=== PATIENT | male | born 1945 | race Caucasian/White ===

== ENCOUNTER 2017-05-14 15:40 | Inpatient (IN) | payer OTHER ==
[~2017-05-14] VITALS: Ht 165.1 cm; Wt 73.5 kg
--- NOTE | 2017-05-14 15:40 | NUR ---
Patient was BIBA and taken to bed 08 via gurney per EMS.
[2017-05-14 15:48] VITALS: BP 131/62
--- NOTE | 2017-05-14 15:52 | NUR ---
PATIENT BIBAdebayo FROM [facility] C/O FEELING WEAK X TODAY WHILE WORKING.PT DENIES ANY PAIN AT THIS TIME;HX OF DM;RX OF METFORMIN .DENIES N/V/D; SKIN IS PINK/WARM/DRY; AAOX4 WITH EVEN AND STEADY GAIT; LUNGS CLEAR BL; HR EVEN AND REGULAR; PT DENIES ANY FEVER, CP, SOB, OR COUGH AT THIS TIME; PATIENT STATES PAIN OF 0/10 AT THIS TIME; VSS; PATIENT POSITIONED FOR COMFORT; HOB ELEVATED; BEDRAILS UP X2; BED DOWN.ALL MONITORS IN PLACED; ER MD MADE AWARE OF PT STATUS.
[2017-05-14] MEDS ORDERED: NACL 0.9% 1,000 ML IV ONE ×2 (15:55→17:20)
--- NOTE | 2017-05-14 15:56 | NUR ---
Dr. Cote evaluating patient at bedside.
[2017-05-14 16:16] LABS: EOSINOPHILS # (AUTO) 0.1 K/uL (0-0.4); EOSINOPHILS % (AUTO) 1.4 % (0.0-4.0); MEAN CORPUSCULAR HEMOGLOBIN 30 pg (27-31); MEAN CORPUSCULAR HGB CONC 34 g/dL (33-37)
[2017-05-14 16:22] LABS: BASOPHILS # (AUTO) 0.2 K/uL (0.00-0.22); BASOPHILS % (AUTO) 2.1 % (0.0-2.0); HEMATOCRIT 39.1 % (36-52); HEMOGLOBIN 13.3 g/dL (12.0-18.0); LYMPHOCYTES # (AUTO) 0.8 K/uL (2.0-11.5); LYMPHOCYTES % (AUTO) 10.5 % (20.5-51.1); MEAN CORPUSCULAR VOLUME 89 fL (80-94); MONOCYTES # (AUTO) 0.4 K/uL (0.8-1.0); MONOCYTES % (AUTO) 5.5 % (1.7-9.3); NEUTROPHILS # (AUTO) 6.5 K/uL (1.8-7.7); NEUTROPHILS % (AUTO) 80.5 % (42.2-75.2); PLATELET COUNT (AUTO) 175 K/uL (140-450); RED BLOOD CELL COUNT(AUTO) 4.39 MIL/uL (4.20-6.10); RED CELL DISTRIBUTION WIDTH 12.5 % (11.6-13.7)
[2017-05-14 16:29] LABS: ANION GAP 14.2 (8-16); CARBON DIOXIDE 26.7 mmol/L (21-32); CHLORIDE 106 mmol/L (98-107); CREATININE 2.4 mg/dL (0.7-1.3); GLUCOSE 147 mg/dL (74-106); POTASSIUM 4.9 mmol/L (3.5-5.1); SODIUM SERUM 142 mmol/L (136-145); UREA NITROGEN, BLOOD 41 mg/dL (7-18)
[2017-05-14 16:45] LABS: ALBUMIN 3.9 g/dL (3.4-5.0); ASPARTATE AMINOTRANSFERASE 76 U/L (15-37); TOTAL BILIRUBIN 0.6 mg/dL (0.0-1.0)
[2017-05-14] MEDS ORDERED: NACL 0.45% 1,000 ML IV ONE (17:20)
[2017-05-14] MEDS ORDERED: ACETAMINOPHEN 325 MG TAB PO PRN (17:30)
[2017-05-14] MEDS ORDERED: ONDANSETRON 4 MG/2 ML VIAL IVP PRN (17:30)
[2017-05-14] MEDS ORDERED: HYDROcodone/APAP 7.5/325 MG 1 TAB PO PRN (17:30)
[2017-05-14] MEDS ORDERED: METF850T PO (17:42)
--- NOTE | 2017-05-14 17:48 | NUR ---
Patient will be admitted to care of DR MOHAN. Admited to TELE. Will go to room 105 B. Belongings list completed. Report to DAVE DUPREE.
[2017-05-14] MEDS ORDERED: MILD SOAP AND WATER TP PRN (18:30)
--- NOTE | 2017-05-14 18:30 | NUR ---
PT ARRIVED FROM ER IN [facility], AWAKE ALERT OX4, RESP EVEN UNLABORED ON ROOM AIR, PT ABLE TO AMBULATE FROM HALLWAY TO 105B WITH STEADY GAIT, PT PLACED ON RN ORTHOPEDIC, VITALS TAKEN, HR 86, BP 138/81, O2 SAT 100%, TEMP 98.2 TA, PT ORIENTED TO ROOM AND FLOOR, PLAN OF CARE DISCUSSED, PT VERBALIZED FULL UNDERSTANDING, DR REDMAN TO BEDSIDE FOR ADMISSION EVALUATION, PT WITH ERYTHEMA TO BILAT INNER THIGH, C/O ITCHING, DENIES DIZZINESS, DENIES LIGHTHEADEDNESS, DENIES SOB, DENIES CHEST PAIN OR OTHER DISCOMFORT, PT HAD 1 EPISODE OF STOOL INCONTINENCE PRIOR TO ARRIVAL, OK'D BY DR REDMAN TO TAKE A SHOWER, PT ESCORTED TO SHOWER AT THIS TIME.
[2017-05-14] MEDS ORDERED: DEXTROSE 50% 50 ML SYR IVP PRN (18:40)
[2017-05-14 18:49] LABS: CHOL/HDL RATIO 4.3 (1-4.5); FREE T4 (FREE THYROXINE) 1.13 ng/dL (0.76-1.46); MAGNESIUM 1.8 mg/dL (1.8-2.4); PHOSPHORUS 6.1 mg/dL (2.5-4.9); THYROID STIMULATING HORMONE 8.19 uIU/mL (0.34-3.74)
[2017-05-14] MEDS ORDERED: TAMSULOSIN 0.4 MG CAP PO SCH (18:51)
--- NOTE | 2017-05-14 19:15 | NUR ---
REPORT GIVEN TO SHORTHAND TEACHER NURSE BECCA, PT NOW WALKING BACK TO ROOM FROM SHOWER WITH STEADY GAIT.
--- NOTE | 2017-05-14 19:16 | NUR ---
RECEIVED REPORT FROM DAY SHIFT NURSE, DAVE DUPREE, PT WALKING FROM SHOWER TO BED, PT STABLE, NO DISTRESS NOTED, AAOX4, IV TO THE R FA 18 G RUNNING NS @150 ML/HR, INFUSING WELL, SKIN INTACT, WITH REDNESS IN THE GROIN AND BILATERAL TIGHT AREA, ALL SAFETY PERCAUTION MET, INITIAL ASSESSMENT DONE, CALL LIGHT WITHIN REACH, WILL CONTINUE TO MONITOR. Addendum: 05/14/17 at 9624 by Johana Jimenez RN PT REFUSED CATTLE RANCHER, PT FAMILY BY BEDSIDE TRANSLATING FOR HIM.
[2017-05-14 19:30] VITALS: BP 143/72
[2017-05-14] MEDS: NACL 0.9% 1,000 ML IV SCH ×2 (19:30→20:26)
--- NOTE | 2017-05-14 19:30 | NUR ---
PT IS MALTESE SPEAKING. FAMILY MEMBERS AT BEDSIDE. EXPLAINED TO PT FAMILY ABOUT USE OF BLUE PHONE TO TRANSLATE FOR PT TO GET ADMISSION INFORMATION. REFUSED TO USE BLUE PHONE . SLIMELALI FALCON- SON IN LAW AVAILABLE TO TRANSLATE FOR PT.
[2017-05-14] MEDS: SIMVASTATIN 10 MG TAB PO SCH (20:24)
--- NOTE | 2017-05-14 20:24 | NUR ---
DUE MEDICATION GIVEN, PT TOLERATED WELL,PT STABLE, NO DISTRESS NOTED, FAMILY BY BEDSIDE, CALL LIGHT WITHIN REACH, WILL CONTINUE TO MONITOR
[2017-05-14] MEDS: DOCUSATE SODIUM 100 MG GELCAP PO SCH (20:26)
[2017-05-14] MEDS: BLOOD GLUCOSE MONITORING 1 DEV DEV FS SCH (21:22)
[2017-05-14] MEDS: INSULIN LISPRO SLIDING SCALE 100 UNITS/ML VIAL SUBQ PRN (21:54)
[2017-05-14] MEDS ORDERED: CALCIUM ACETATE 667 MG TAB PO SCH (22:30)
--- NOTE | 2017-05-14 22:45 | NUR ---
PT SAID OK TO GET BOTH PNEUMONIA AND FLU VACCINE HERE. DR. Mio REDMAN ,RESIDENT MADE AWARE. HE SAID HE WILL PUT AN ORDER.
[2017-05-15] VITALS (8 sets, daily range): BP systolic 125–150; BP diastolic 59–82
[2017-05-15] MEDS: NACL 0.9% 1,000 ML IV SCH ×7 (00:10→22:00)
--- NOTE | 2017-05-15 00:16 | NUR ---
VITAL SIGN TAKEN, PT STABLE, SLEEPING, EASY TO AROUSE, CALL LIGHT WITHIN REACH, WILL CONTINUE TO MONITOR.
[2017-05-15] MEDS ORDERED: NYSTATIN POW 100 MU/GM 15 GM BTL TP SCH (01:00)
[2017-05-15] MEDS: TRIAMCINOLONE 0.1% CRM 15 GM TUBE TP SCH ×2 (01:00→13:00)
[2017-05-15] MEDS: MILD SOAP AND WATER TP SCH ×2 (01:30→13:00)
--- NOTE | 2017-05-15 02:30 | NUR ---
PT SLEEPING, EASY TO AROUSE, STABLE, NO DISTRESS NOTED, CALL LIGHT WITHIN REACH. WILL CONTINUE TO MONITOR.
--- NOTE | 2017-05-15 04:57 | NUR ---
PT SLEEPING, EASY TO AROUSE, PT STABLE, NO DISTRESS NOTED, CALL LIGHT WITHIN REACH. WILL CONTINUE TO MONITOR.
--- NOTE | 2017-05-15 05:02 | NUR ---
PT AMBULATORY, SCD NOT INDICATED.
[2017-05-15 05:47] LABS: BASOPHILS # (AUTO) 0.1 K/uL (0.00-0.22); BASOPHILS % (AUTO) 1.6 % (0.0-2.0); EOSINOPHILS # (AUTO) 0.1 K/uL (0-0.4); HEMATOCRIT 34.7 % (36-52); HEMOGLOBIN 11.7 g/dL (12.0-18.0); LYMPHOCYTES # (AUTO) 0.7 K/uL (2.0-11.5); LYMPHOCYTES % (AUTO) 16.9 % (20.5-51.1); MEAN CORPUSCULAR HEMOGLOBIN 30 pg (27-31); MEAN CORPUSCULAR HGB CONC 34 g/dL (33-37); MEAN CORPUSCULAR VOLUME 89 fL (80-94); MONOCYTES # (AUTO) 0.4 K/uL (0.8-1.0); NEUTROPHILS # (AUTO) 2.9 K/uL (1.8-7.7); NEUTROPHILS % (AUTO) 70.5 % (42.2-75.2); PLATELET COUNT (AUTO) 122 K/uL (140-450); RED BLOOD CELL COUNT(AUTO) 3.88 MIL/uL (4.20-6.10); RED CELL DISTRIBUTION WIDTH 12.3 % (11.6-13.7); WHITE BLOOD COUNT (AUTO) 4.2 K/uL (4.8-10.8)
[2017-05-15] MEDS: BLOOD GLUCOSE MONITORING 1 DEV DEV FS SCH ×4 (05:58→20:18)
[2017-05-15 06:01] LABS: ANION GAP 12.2 (8-16); CARBON DIOXIDE 23.4 mmol/L (21-32); CHLORIDE 109 mmol/L (98-107); CREATININE 1.2 mg/dL (0.7-1.3); GLUCOSE 140 mg/dL (74-106); POTASSIUM 4.6 mmol/L (3.5-5.1); SODIUM SERUM 140 mmol/L (136-145); UREA NITROGEN, BLOOD 28 mg/dL (7-18)
--- NOTE | 2017-05-15 06:31 | NUR ---
BLOOD SUGAR 129, NO INSULIN COVERAGE.
--- NOTE | 2017-05-15 07:05 | NUR ---
GAVE REPORT TO DAY SHIFT NURSE, ALEENA RN, PT STABLE, NO DISTRESS NOTED.
--- NOTE | 2017-05-15 07:07 | NUR ---
RECEIVED REPORT FROM HAND STEMMER RN. PATIENT IS AAOX4, DENIES ANY PAIN AT THIS TIME. RESPIRATORY EFFORT EVEN AND UNLABORED, NO SIGNS AND SYMPTOMS OF ACUTE DISTRESS NOTED AT THIS TIME. HAS NS INFUSING AT 150 ML/HR TO RIGHT FOREARM 18G. SITE IS CLEAN, DRY, INTACT AND PATENT. BED IS IN LOWEST POSITION, SIDERAILS UP X2, CALL LIGHT PLACED WITHIN REACH. WILL CONTINUE TO MONITOR.
--- NOTE | 2017-05-15 08:44 | NUR ---
WENT IN WITH DR BOATENG FOR A STOOL OCCULT SAMPLE. PATIENT TOLERATED WELL.
[2017-05-15] MEDS: DOCUSATE SODIUM 100 MG GELCAP PO SCH ×2 (08:58→20:18)
[2017-05-15] MEDS: ECOTRIN 81 MG TABEC PO SCH (08:58)
[2017-05-15] MEDS: TAMSULOSIN 0.4 MG CAP PO SCH (08:59)
[2017-05-15] MEDS: LISINOPRIL 10 MG TAB PO SCH (08:59)
[2017-05-15] MEDS: metFORMIN 850 MG TAB PO SCH ×2 (08:59→17:02)
--- NOTE | 2017-05-15 09:05 | NUR ---
ASSESSED PATIENTS SKIN WITH RUG RECEIVING CLERK SARAH. HAS REDNESS ON INNER THIGHS BILATERALLY, DRS ARE AWARE AND HAVE NYASTATIN POWDER ORDERED. SHE RECOMMENDS PUTTING HYDRAGUARD ON HIS LOWER LEGS DUE TO DRY SKIN.
--- NOTE | 2017-05-15 09:23 | NUR ---
PATIENT HAS BEEN SCREENED AND CATEGORIZED HIGH NUTRITION RISK. PATIENT WILL BE SEEN WITHIN 1-2 DAYS OF ADMISSION. 05/15/17-05/16/[address]
--- NOTE | 2017-05-15 09:30 | NUR ---
WOUND EVALUATION NOTE: REASON FOR WOUND EVALUATION: SKIN RASHES COMPLETE SKIN ASSESSMENT DONE ON THIS 71 Y/O MALE PATIENT FROM HOME TO [facility], WITH INITIAL DIAGNOSIS OF GENERAL WEAKNESS. PAST MEDICAL HISTORY INCLUDE DM, HTN, AND HYPERLIPIDEMIA. ALL ABOVE INFORMATION WAS OBTAINED FROM THE ADMISSION H&P. LABS ARE WBC 8.0, H/H 13.3/39.1, POC GLUCOSE 129, PT/INR 11.1/1.1 AND PTT 23.2. CURRENT MEDS INCLUDE ASPIRIN, LISINOPRIL, METFORMIN AND INSULIN. PATIENT IS AWAKE, ORIENTED TO PERSON, PLACE AND TIME. SKIN WARM TO TOUCH WNL, TOENAILS ARE SLIGHTLY THICKENED, NO EDEMA, BLE WITH HAIR GROWTH AND NORMAL PEDAL PULSES. PT. SPEAK PUERTO RICAN, PRIMARY RN ASSIST IN TRANSLATING. PLAN OF CARE DISCUSS WITH PT. AND PRIMARY RN. PT VERBALIZES UNDERSTANDING. INTEGUMENTARY: SKIN DRY AND INTACT -GROINS TO MEDIAL THIGHS FUNGAL RASHES, SKIN INTACT -BLE DRY SCALING SKIN RECOMMENDATIONS: -CLEANSE GROINS AND MEDIAL THIGHS FUNGAL RASHES WITH SOAP AND WATER. PAT DRY,APPLY NYSTATIN POWDER QD AND ALEISHA -APPLY HYDRAGUARD TO BLE DRYNESS QD AND ALEISHA -TURN AND REPOSITION PATIENT Q2H -OFFLOAD BILATERAL HEELS BY PLACING PILLOWS UNDER CALVES AT ALL TIMES, UNLESS OTHERWISE CONTRAINDICATED-KEEP -KEEP SKIN CLEAN AND DRY AT ALL TIMES. -CONTINUE TO FOLLOW RD RECOMMENDATION RECOMMENDATIONS DISCUSSED WITH PRIMARY RN
[2017-05-15] MEDS ORDERED: TAMS0.4C96 PO (09:45)
[2017-05-15] MEDS ORDERED: LISI10TA11 PO (09:45)
[2017-05-15] MEDS ORDERED: SIMV10TA1 PO (09:45)
[2017-05-15] MEDS ORDERED: ASPI81CT89 PO (09:45)
[2017-05-15 12:09] LABS: APPEARANCE,URINE CLEAR (CLEAR); BILIRUBIN,URINE NEGATIVE (NEGATIVE); BLOOD, URINE NEGATIVE (NEGATIVE); COLOR,URINE YELLOW (YELLOW); LEUKOCYTE ESTERASE ,URINE NEGATIVE (NEGATIVE); NITRITE, URINE NEGATIVE (NEGATIVE); PH,URINE 5.5 (5.0-9.0); UGLUCOSE NEGATIVE (NEGATIVE)
[2017-05-15 12:16] LABS: BARBITURATE, URINE NEG. ng/ml (NEG <=200); BENZODIAZEPINE, URINE NEG. ng/mL (NEG <=200); CANNABINOID, URINE NEG. ng/mL (NEG <=50); COCAINE, URINE NEG. ng/mL (NEG <=300); OPIATE, URINE NEG. ng/mL (NEG <=2000); PHENCYCLIDINE SCREEN,URINE NEG. ng/mL (NEG <=25)
[2017-05-15 12:38] LABS: RBC,URINE 0-5 (RARE) /HPF (0-5); WBC,URINE 0-5 (RARE) /HPF (0-5)
--- NOTE | 2017-05-15 13:43 | NUR ---
05/15/17 RD INITIAL ASSESSMENT COMPLETED PLEASE REFER TO NUTRITION ASSESSMENT UNDER CARE ACTIVITY FOR ESTIMATED NUTRITIONAL NEEDS. 1. CONTINUE 60 GMS CONSISTENT CARBOHYDRATE DIET 2. RD TO FOLLOW UP WITHIN 3-5 DAYS; MODERATE RISK JOHANNE VASQUEZ RD
--- NOTE | 2017-05-15 13:55 | NUR ---
FAXED INITIAL REVIEW TO [facility] [phone] PHONE [facility] [phone] OP 4 PHONE COORDINATOR CHINTAN [phone] TRACKING [phone] FAXED INITIAL REVIEW TO [facility] [phone] PHONE ROSSY [phone] [facility] [[email or web address]] [phone]
--- NOTE | 2017-05-15 14:00 | NUR ---
APPLIED CREAM TO RASH AREAS ON BILATERAL THIGHS AND GROIN. ALSO APPLIED HYDROGUARD TO BILATERAL LOWER LEGS AND FEET FOR DRYNESS. PATIENT TOLERATED WELL.
[2017-05-15] MEDS: HYDRAGUARD CREAM TP SCH (15:09)
--- NOTE | 2017-05-15 17:00 | NUR ---
PATIENT IN BED RESTING. WILL CONTINUE TO MONITOR.
--- NOTE | 2017-05-15 19:08 | NUR ---
ENDORSED PATIENT TO SOUND CONTROLLER RN FOR CONTINUITY OF CARE. PATIENT IS IN STABLE CONDITION.
--- NOTE | 2017-05-15 19:15 | NUR ---
RECEIVED REPORT FROM AM NURSE. PT FAMILY AT BEDSIDE. PT RESTING IN BED, AOX4, AMBULATORY, ABLE TO VERBALIZE NEEDS. PT DENIES CHEST PAIN, SOB OR S/S OF ACUTE DISTRESS. BORING MACHINE OPERATOR HELPER IN PLACE. ERRYTHEMA NOTED ON GROIN AREA AND BILATERAL MEDIAL THIGH. IV ACCESS ASYMPTOMATIC, PATENT AND INTACT. IVF INFUSING WELL. DISCUSSED AND REVIEWED PLAN OF CARE WITH PT. PT VERBALIZED UNDERSTANDING. ALL NEEDS MET. IVF INFUSING WELL. SAFETY MEASURES ENSURED. CALL LIGHT WITHIN REACH. WILL CONTINUE TO MONITOR.
[2017-05-15] MEDS: SIMVASTATIN 10 MG TAB PO SCH (20:18)
[2017-05-15] MEDS: INSULIN LISPRO SLIDING SCALE 100 UNITS/ML VIAL SUBQ PRN (20:23)
[2017-05-15] MEDS: KETOCONAZOLE 2% 15 GM TUBE TP SCH (20:24)
--- NOTE | 2017-05-15 20:24 | NUR ---
ADMINISTERED DUE MEDS WITH EDUCATION. ADMINISTERED INSULIN COVERAGE WITH EVENING SNACK AND EDUCATION. DUE CREAM APPLIED TO BILATERAL THIGH AND GROIN ORDERED. PT VERBALIZED UNDERSTANDING, TOLERATED MEDS WELL. ALL NEEDS MET. IVF INFUSING WELL. SAFETY MEASURES ENSURED. CALL LIGHT WITHIN REACH. WILL CONTINUE TO MONITOR.
[2017-05-16] VITALS: BP 139/68
[2017-05-16] MEDS: TRIAMCINOLONE 0.1% CRM 15 GM TUBE TP SCH ×2 (00:15→13:28)
[2017-05-16] MEDS: MILD SOAP AND WATER TP SCH ×2 (00:15→13:20)
--- NOTE | 2017-05-16 00:15 | NUR ---
PT RESTING IN BED COMFORTABLY, NO S/S OF ACUTE DISTRESS. BILATERAL THIGH AND GROIN CLEANSED WITH SOAP AND WATER, PAT DRY, ADMINISTERED DUE CREAM ORDERED. PT TOLERATED WELL. ALL NEEDS MET. IVF INFUSING WELL. SAFETY MEASURES ENSURED. CALL LIGHT WITHIN REACH. WILL CONTINUE TO MONITOR.
--- NOTE | 2017-05-16 03:24 | NUR ---
PT SLEEPING COMFORTABLY, AROUSABLE BY NAME, NO S/S OF ACUTE DISTRESS. ALL NEEDS MET. IVF INFUSING WELL. SAFETY MEASURES ENSURED. CALL LIGHT WITHIN REACH. WILL CONTINUE TO MONITOR.
[2017-05-16 04:00] VITALS: BP 138/69
[2017-05-16] MEDS: BLOOD GLUCOSE MONITORING 1 DEV DEV FS SCH ×3 (06:36→16:28)
[2017-05-16] MEDS: INSULIN LISPRO SLIDING SCALE 100 UNITS/ML VIAL SUBQ PRN (06:37)
--- NOTE | 2017-05-16 06:37 | NUR ---
INSULIN COVERAGE ADMINISTERED WITH SNACK AND EDUCATION. PT VERBALIZED UNDERSTANDING, TOLERATED MED WELL. ALL NEEDS MET. IVF INFUSING WELL. SAFETY MEASURES ENSURED. CALL LIGHT WITHIN REACH. WILL CONTINUE TO MONITOR.
--- NOTE | 2017-05-16 07:20 | NUR ---
ENDORSED PLAN OF CARE TO AM NURSE. CONDITION STABLE.
--- NOTE | 2017-05-16 07:22 | NUR ---
RECEIVED PT IN BED. AWAKE. ALERT ORIENTED X4. NO SOB NOTED. DENIES ANY PAIN OR DISCOMFORT AT THIS TIME. PT AMBULATORY. SAFETY PRECAUTION IN PLACE. CALL LIGHT WITHIN REACH.
[2017-05-16 08:00] VITALS: BP 140/69
[2017-05-16] MEDS: TAMSULOSIN 0.4 MG CAP PO SCH (08:28)
[2017-05-16] MEDS: metFORMIN 850 MG TAB PO SCH ×2 (08:28→16:41)
[2017-05-16] MEDS: DOCUSATE SODIUM 100 MG GELCAP PO SCH (08:29)
[2017-05-16] MEDS: LISINOPRIL 10 MG TAB PO SCH (08:29)
[2017-05-16] MEDS: ECOTRIN 81 MG TABEC PO SCH (08:29)
[2017-05-16] MEDS: KETOCONAZOLE 2% 15 GM TUBE TP SCH (08:30)
--- NOTE | 2017-05-16 11:05 | NUR ---
JAY, GRANDDAUGHTER CAME TO SEE PT. PT WALKING ALONG THE HALLWAY, INDEPENDENTLY WITH GRANDDAUGHTER. NO SOB NOTED. DENIES ANY PAIN OR DISCOMFORT AT THIS TIME.
[2017-05-16 12:00] VITALS: BP 158/70
[2017-05-16] MEDS: NACL 0.9% 1,000 ML IV SCH (12:05)
[2017-05-16 13:00] VITALS: BP 158/77
--- NOTE | 2017-05-16 13:03 | NUR ---
DR. BOO MADE AWARE OF BLOOD PRESSURE 158/[address] BOO TO LET DR. BOATENG KNOW.
[2017-05-16] MEDS: HYDRAGUARD CREAM TP SCH (13:28)
--- NOTE | 2017-05-16 13:55 | NUR ---
CM NOTE CONCURRENT REVIEW FAXED TO [facility] (FAX# [phone], C: [phone] OP ) AND [facility] (FAX# [phone], ATTN: ROSSY [phone]) ERICKA FROM [employer] CLAIMS MANAG[employer] REQUESTING CLINICAL REVIEW. FAXED TO [phone].
[2017-05-16] MEDS ORDERED: INFLUENZA VIRUS VACCINE QUAD 0.5 ML SYR IMVAC SCH (14:00)
--- NOTE | 2017-05-16 14:07 | NUR ---
RECEIVED A CALL FROM [facility]UL[facility] PHARMACIST REGARDING FLU VACCINE THAT ACCORDING TO PT HX PT HAD A REACTION WITH FLU VACCINE BEFORE. CLARIFIED WITH PT. PT FAMILY MEMBER YASMINE AT BEDSIDE, ASKED PT, VERIFIED THAT PT COULDN'T REMEMBER IF HE HAD A REACTION BEFORE, AND WOULD JUST WANT TO REFUSE IT. CALLED JULIENNE AND MADE AWARE.
[2017-05-16] MEDS ORDERED: KETO2CRE4 TP (14:34)
[2017-05-16 15:20] VITALS: BP 140/73
--- NOTE | 2017-05-16 16:46 | NUR ---
CM NOTE SPOKE W/ ERICKA FROM [employer] ([phone]). MADE AWARE THAT PATIENT HAS BEEN DISCHARGED HOME W/ NO OUTPATIENT NEEDS. CLAIM# [id number]
--- NOTE | 2017-05-16 17:15 | NUR ---
USED [facility] [employer] SPOKE WITH JARED #[id number]. DISCHARGE INSTRUCTIONS AND HEALTH TEACHINGS GIVEN AND EXPLAINED TO PT. PT VERBALIZED UNDERSTANDING. REMINDED PT TO FOLLOW UP WITH PCP ACCORDING TO SCHEDULED APPOINTMENT. PT VERBALIZED UNDERSTANDING AND SIGNED DISCHARGE PAPERS. EJ VACCINE AND PNA VACCINE REFUSED AT THIS TIME. FAMILY YASMINE AT BEDSIDE. IV CANNULA REMOVED AND INTACT. NAME ARMBAND REMOVED. TELEMONITOR REMOVED. NO SOB NOTED. DENIES ANY PAIN OR DISCOMFORT AT THIS TIME.
--- NOTE | 2017-05-16 17:30 | NUR ---
PT WHEELED OUT GOING TO THE HOSPITAL PARKING LOT PER COMPUTER SYSTEMS SUPPORT SPECIALIST, GOING TO THEIR PRIVATE OWNED VEHICLE WITH FAMILY. NO SOB NOTED. DENIES ANY PAIN OR DISCOMFORT AT THIS TIME. PT DISCHARGED ON STABLE CONDITION.
== END 2017-05-16 17:30 | disposition home or self-care (01) | DRG 682 ==
LOC: MED 15:40 → MTU 17:34
PROVIDERS: ADMIT Family Medicine; ATTEND Family Medicine
DX: N17.0 Acute kidney failure with tubular necrosis (principal); G93.41 Metabolic encephalopathy; D68.59 Other primary thrombophilia; D69.6 Thrombocytopenia, unspecified; E11.65 Type 2 diabetes mellitus with hyperglycemia; E11.51 Type 2 diabetes mellitus with diabetic peripheral angiopathy without gangrene; E86.0 Dehydration; E83.39 Other disorders of phosphorus metabolism; I10 Essential (primary) hypertension; E78.5 Hyperlipidemia, unspecified; N40.0 Benign prostatic hyperplasia without lower urinary tract symptoms; B35.4 Tinea corporis; D64.9 Anemia, unspecified; E78.1 Pure hyperglyceridemia; E02 Subclinical iodine-deficiency hypothyroidism; L30.8 Other specified dermatitis; Z98.49 Cataract extraction status, unspecified eye; Z79.84 Long term (current) use of oral hypoglycemic drugs
CPT/HCPCS: 36415; 70450; 71010; 80048; 80053; 80305; 81001; 82948; 83036; 83735; 83880; 84100; 84439; 84443; 84484; 85025; 85610; 85730; 87081; 87086; 93005; 93880; 93925; 93970; 96360; 99285; J1815; J7030; Q0092